=== PATIENT | female | born 1990 | race Caucasian/White ===

== ENCOUNTER 2016-02-25 23:44 | Emergency (ER) | payer MEDICAID ==
[2016-02-25 23:53] VITALS: TEMP 98.6
[2016-02-26] MEDS ORDERED: LORazepam 1 MG TAB PO ONE (00:05)
[2016-02-26] MEDS ORDERED: ONDANSETRON DISINTEGRATING 4 MG TAB PO ONE (00:05)
--- NOTE | 2016-02-26 00:09 | EDPHY ---
H & P Stated Complaint: HERE FOR DETOX, AT [facility] 2 DAYS AGO, VODKA THIS AM, BUD LIGHT TODAY HPI/ROS: HPI CHIEF COMPLAINT: Alcohol intoxication, alcohol withdrawal HISTORY OF PRESENT ILLNESS: This patient is a very pleasant 25-year-old female she presents emergency room stating that she is going to alcohol withdrawal. She tells me her last drink was an hour ago she drank vodka. She tells me she drinks about a L of vodka per evening. She denies any other drug use she tells me that she has had alcohol withdrawal seizure before. She tells me that she feels shaky and anxious. It is noted upon arrival here she does have mild tremors and is tachycardic to the 120s. She is agreeable to be discharged to the [facility] see after she received IV fluid and Ativan. Past Medical History: No significant medical history except for daily alcohol use Past Surgical History: No significant surgical history Social History: Daily alcohol use Family History: Noncontributory ROS REVIEW OF SYSTEMS: A comprehensive 10 point review of systems is otherwise negative aside from elements mentioned in the history of present illness. Exam Constitutional anxious appearing, tearful triage nursing summary reviewed, vital signs reviewed, awake/alert. Eyes normal conjunctivae and sclera, EOMI, PERRLA. HENT normal inspection, atraumatic, moist mucus membranes, no epistaxis, neck supple/ no meningismus, no raccoon eyes. Respiratory clear to auscultation bilaterally, normal breath sounds, no respiratory distress, no wheezing. Cardiovascular tachycardia, regular rhythm, no murmur, no edema, distal pulses normal. Gastrointestinal soft, non-tender, no rebound, no guarding, normal bowel sounds, no distension, no pulsatile mass. Genitourinary no CVA tenderness. Musculoskeletal no midline vertebral tenderness, full range of motion, no calf swelling, no tenderness of extremities, no meningismus, good pulses, neurovascularly intact. Skin pink, warm, & dry, no rash, skin atraumatic. Neurologic Mild tremors of her hands with hand extension, no asterixis, awake, alert and oriented x 3, AAOx3, moves all 4 extremities equally, motor intact, sensory intact, CN II-XII intact, normal cerebellar, normal vision, normal speech. Psychiatric normal mood/affect. Heme/Lymph/Immune no lymphadenopathy. Differential Diagnosis: includes but is not limited to in a particular order, acute alcohol intoxication, alcohol withdrawal, anxiety Medical Decision Making: this patient had an IV established given 1 mg IV Ativan for anxiety and alcohol draw she received IV fluids. Plan for discharge to the [facility], [place]. Re-evaluation: 0156; re-evaluation at this time this patient is resting comfortably she did have a coughing spell and was out of her albuterol inhaler we have supplied her with an albuterol here she is not wheezing she has no respiratory distress she is resting comfortably she feels better after IV fluids and IV Ativan. She is no longer tremulous she is agreeable for discharge go to detox. I prescribed her Librium for detox. Source: Patient - Personal History LMP (Females 10-55): Now Current Tetanus/Diphtheria Vaccine: Yes - Medical/Surgical History Hx Asthma: Yes Hx Chronic Respiratory Disease: Yes Hx Diabetes: No Hx Cardiac Disease: No Hx Renal Disease: No Hx Cirrhosis: No Hx Alcoholism: Yes Hx HIV/AIDS: No Hx Splenectomy or Spleen Trauma: No Other PMH: cholecystectomy, ETOH - Social History Smoking Status: Current some day smoker Constitutional: Initial Vital Signs Temperature (C) 37.0 C 02/25/16 23:50 Heart Rate 120 H 02/25/16 23:50 Respiratory Rate 20 02/25/16 23:50 Blood Pressure 112/89 H 02/25/16 23:50 O2 Sat (%) 99 02/25/16 23:50 O2 Delivery Mode Room Air Allergies/Adverse Reactions: sulfa and its derivatives Allergy (Uncoded 02/25/16 23:48) Home Medications: Medication Instructions Recorded Albuterol 5 mg/ml INH 02/26/16 Celexa 02/26/16 Effexor 02/26/16 IBUPROFEN 02/26/16 Naltrexone HCl 02/26/16 Wellbutrin Xl 02/26/16 Medical Decision Making - Data Points Medications Given: Discontinued Medications Sodium Chloride (Ns) 1,000 mls @ 0 mls/hr IV ONCE ONE PRN Reason: Wide Open Stop: 02/26/16 00:15 Last Admin: 02/26/16 00:20 Dose: 1,000 mls Lorazepam (Ativan) 1 mg PO EDNOW ONE Stop: 02/26/16 00:06 Last Admin: 02/26/16 00:11 Dose: 1 mg Lorazepam (Ativan Injection) 1 mg IVP EDNOW ONE Stop: 02/26/16 00:15 Last Admin: 02/26/16 00:38 Dose: 1 mg Ondansetron HCl (Zofran Odt) 4 mg PO EDNOW ONE Stop: 02/26/16 00:06 Last Admin: 02/26/16 00:11 Dose: 4 mg Departure - Departure Disposition: Home, Routine, Self-Care Clinical Impression: Alcohol intoxication Qualifiers: Complication of substance-induced condition: uncomplicated Qualifier Code: ( F10.120) Alcohol abuse with intoxication, uncomplicated Condition: Good Instructions: Alcohol Intoxication (ED), Abuse of Alcohol (ED) Referrals: [place],. [Primary Care Provider] - As per Instructions
[2016-02-26] MEDS ORDERED: NS 1,000 ML IV ONE ×2 (00:14→02:05)
[2016-02-26] MEDS ORDERED: LORazepam 2 MG/ML INJ IVP ONE ×2 (00:14→02:05)
[2016-02-26] MEDS ORDERED: CHLORDIAZEPOXIDE 25MG PREPK#6 BTL TAKEHOME ONE ×2 (00:17→02:23)
[2016-02-26] MEDS ORDERED: ALBUTEROL INH PREPACK MDI TAKEHOME ONE ×2 (01:14→01:20)
[2016-02-26 02:17] VITALS: BP 113/73; PULSE 108; RESP 16; O2SAT 98
== END 2016-02-26 03:25 | disposition home or self-care (01) ==
DX: F10.120 Alcohol abuse with intoxication, uncomplicated (principal); F17.200 Nicotine dependence, unspecified, uncomplicated; J45.909 Unspecified asthma, uncomplicated
CPT/HCPCS: 96374